=== PATIENT | female | born 1970 ===

== ENCOUNTER 2017-03-29 18:13 | Emergency (ER) | payer BC, OTHER ==
[2017-03-29 18:14] VITALS: BMI 32.5
--- NOTE | 2017-03-29 18:27 | ED PDOC ---
Arrival/HPI - General Time Seen by Provider: 03/29/17 18:25 Historian: Patient - History of Present Illness Narrative History of Present Illness (Text): 03/29/17 18:25 This 46-year-old female presents to the emergency department complaining of left upper tooth ache for 2 weeks. Patient has made an appointment to see her dentist in 2 weeks from now. Patient is requesting antibiotics. Denies dysphasia, sore throat, aches, fever, facial rash, numbness, shortness of breath , cough, abdominal pain, or trauma Time/Duration: Other (2 weeks) Past Medical History - Provider Review Nursing Documentation Reviewed: Yes - Infectious Disease Hx of Infectious Diseases: None - Tetanus Immunization Tetanus Immunization: Unknown - Cardiac Hx Cardiac Disorders: No - Pulmonary Hx Respiratory Disorders: Yes Hx Asthma: Yes - Neurological Hx Neurological Disorder: No - HEENT Hx HEENT Disorder: No - Renal Hx Renal Disorder: No - Endocrine/Metabolic Hx Endocrine Disorders: No - Hematological/Oncological Hx Blood Disorders: Yes Hx Anemia: Yes Hx Blood Transfusions: Yes ("multiple") Hx Blood Transfusion Reaction: Yes (hives) - Integumentary Hx Dermatological Disorder: No - Musculoskeletal/Rheumatological Hx Musculoskeletal Disorders: No - Gastrointestinal Hx Gastrointestinal Disorders: No - Genitourinary/Gynecological Hx Genitourinary Disorders: No - Psychiatric Hx Psychophysiologic Disorder: No Hx Substance Use: No - Past Surgical History Past Surgical History: No Previous - Surgical History Hx Section: Yes (x3) Hx Gastric Bypass Surgery: Yes (2006) - Anesthesia Hx Anesthesia: Yes - Suicidal Assessment Feels Threatened In Home Enviroment: No Family/Social History - Physician Review Nursing Documentation Reviewed: Yes Family/Social History: No Known Family HX Smoking Status: Former Smoker Hx Alcohol Use: No Hx Substance Use: No Hx Substance Use Treatment: No Allergies/Home Meds Allergies/Adverse Reactions: Allergies No Known Allergies Allergy (Verified 03/29/17 18:22) Review of Systems - Review of Systems Constitutional: Normal. absent: Fatigue, Weight Change, Fevers, Night Sweats Eyes: Normal ENT: Other (Toothache) Respiratory: Normal. absent: SOB, Cough Cardiovascular: Normal. absent: Chest Pain Gastrointestinal: Normal. absent: Abdominal Pain, Nausea, Vomiting Genitourinary Female: Normal Musculoskeletal: Normal Skin: Normal. absent: Rash Neurological: Normal. absent: Headache, Dizziness, Focal Weakness, Gait Changes , Speech Changes, Facial Droop, Disequilibrium, Seizure Endocrine: Normal Hemo/Lymphatic: Normal Psychiatric: Normal Physical Exam Vital Signs Temp Pulse Resp BP Pulse Ox 03/29/17 18:36 99.2 F 70 16 129/84 97 Temperature: Afebrile Blood Pressure: Normal Pulse: Regular Respiratory Rate: Normal Appearance: Positive for: Well-Appearing, Non-Toxic, Comfortable Pain Distress: None Mental Status: Positive for: Alert and Oriented X 3 - Systems Exam Head: Present: Atraumatic, Normocephalic Pupils: Present: PERRL Extroacular Muscles: Present: EOMI Conjunctiva: Present: Normal Ears: Present: Normal, NORMAL TM, Normal Canal. No: Erythema, TM Bulging, Fluid , TM Perf Mouth: Present: Moist Mucous Membranes, Normal Lips, Normal Tounge, Other (Mild left tooth #15 caries). No: Drooling Pharnyx: Present: Normal. No: ERYTHEMA, EXUDATE, TONSILS ENLARGED Nose (External): Present: Atraumatic Nose (Internal): Present: Normal Inspection Neck: Present: Normal Range of Motion, Trachea Midline. No: Meningeal Signs, MIDLINE TENDERNESS, Paraspinal Tenderness Upper Extremity: Present: Normal Inspection, Normal ROM, NORMAL PULSES, Neurovascularly Intact, Capillary Refill < 2s Lower Extremity: Present: Normal Inspection, NORMAL PULSES, Neurovascularly Intact, Capillary Refill < 2 s Neurological: Present: GCS=15, CN II-XII Intact, Speech Normal, Motor Func Grossly Intact, Normal Sensory Function, Normal Cerebellar Funct, Gait Normal, Memory Normal Skin: Present: Warm, Dry, Normal Color. No: Rashes Psychiatric: Present: Alert, Oriented x 3 Medical Decision Making ED Course and Treatment: 03/29/17 18:31 Patient remained stable during the course of the ED visit. Patient tooth infection was treated with amoxicillin. Patient was recommended to follow with her dentist in 1-2 days. To return to the emergency symptoms worsen [place] [employer] was reviewed without recent narcotic prescription filled. Re-evaluation Time: 18:32 Reassessment Condition: Re-examined, Improved - Medication Orders Current Medication Orders: Discontinued Medications Amoxicillin (Amoxil 500 Mg Cap) 500 mg PO STAT STA PRN Reason: Protocol Stop: 03/29/17 18:28 Last Admin: 03/29/17 18:47 Dose: 500 mg Disposition/Present on Arrival - Present on Arrival Any Indicators Present on Arrival: No History of DVT/PE: No History of Uncontrolled Diabetes: No Urinary Catheter: No History of Decub. Ulcer: No History Surgical Site Infection Following: None - Disposition Have Diagnosis and Disposition been Completed?: Yes Diagnosis: Tooth ache Disposition: HOME/ ROUTINE Disposition Time: 18:32 Patient Plan: Discharge Condition: GOOD Discharge Instructions (ExitCare): Toothache (ED) Additional Instructions: Call primary dentist for follow-up visit in 1-2 days. Condition is instructed with food. Return to the emergency symptoms worsen Prescriptions: Acetaminophen/Hydrocodone Bi [Vicodin 300 mg-5 mg] 1 tab PO TID PRN #10 tab PRN Reason: Pain, Severe (8-10) Amoxicillin [Amoxil 500 mg Cap] 500 mg PO TID #30 cap Chlorhexidine 0.12% [Peridex] 15 ml PO BID #1 bottle Referrals: [facility] [Outside] - Follow up with primary [employer] [facility] [Outside] - Follow up with primary Forms: WORK NOTE
[2017-03-29 18:37] VITALS: BP 129/84; PULSE 70; RESP 16; TEMP 99.2; O2SAT 97
== END 2017-03-29 18:48 | disposition home or self-care (01) ==
LOC: ED 18:13
DX: K08.89 Other specified disorders of teeth and supporting structures (principal)

== ENCOUNTER 2017-04-12 19:56 | Observation (INO) | payer BC ==
--- NOTE | 2017-04-12 21:07 | ED PDOC ---
Arrival/HPI - General Chief Complaint: High Blood Pressure Time Seen by Provider: 04/12/17 20:24 Historian: Patient, Family - History of Present Illness Narrative History of Present Illness (Text): 04/12/17 22:28 Patient is a 46 yo female past medical hx of lupus, presents to ED with one week history of intermittent arm numbness and weakness, associated with intermittent headache and dyspnea. Patient states 5 days ago while at rest, she experienced sudden sensation of numbness and weakness to left arm, "felt like I couldn't hold on to things" for "a couple minutes". Associated with headache. Symptoms resolved, but later in the day she felt dizzy and short of breath. Symptoms continued intermittently for next few days, and 2 days ago she had sensation of nausea as well. This morning while at rest she experienced numbness and sensation of weakness to right arm associated with blurred vision. states no change in behavior or speech changes throughout the week that he has noticed. No gait instability. Patient had brief episodes of blurred vision but denies loss of vision or severe headache. Denies difficulty working on computer or using her cellphone today. She states she checked her blood pressure on family member's blood pressure cuff and SBP was 190, checked twice. She denies prior history of hypertension. She reports hx of [place] and CAD in sister in her 20s, as well as mother. She denies any past known cardiac history for herself. Currently denies any chest pain or headache. Past Medical History - Infectious Disease Hx of Infectious Diseases: None - Tetanus Immunization Tetanus Immunization: Unknown - Cardiac Hx Cardiac Disorders: No - Pulmonary Hx Respiratory Disorders: Yes Hx Asthma: Yes - Neurological Hx Neurological Disorder: No - HEENT Hx HEENT Disorder: No - Renal Hx Renal Disorder: No - Endocrine/Metabolic Hx Endocrine Disorders: No - Hematological/Oncological Hx Blood Disorders: Yes Hx Anemia: Yes Hx Blood Transfusions: Yes ("multiple") Hx Blood Transfusion Reaction: Yes (hives) - Integumentary Hx Dermatological Disorder: No - Musculoskeletal/Rheumatological Hx Musculoskeletal Disorders: No - Gastrointestinal Hx Gastrointestinal Disorders: No - Genitourinary/Gynecological Hx Genitourinary Disorders: No - Psychiatric Hx Psychophysiologic Disorder: No Hx Substance Use: No - Past Surgical History Past Surgical History: No Previous - Surgical History Hx Section: Yes (x3) Hx Gastric Bypass Surgery: Yes (2005) - Anesthesia Hx Anesthesia: Yes - Suicidal Assessment Feels Threatened In Home Enviroment: No Family/Social History Family/Social History: CAD/[place] Smoking Status: Former Smoker Hx Alcohol Use: No Hx Substance Use: No Hx Substance Use Treatment: No Allergies/Home Meds Allergies/Adverse Reactions: Allergies No Known Allergies Allergy (Verified 03/29/17 18:22) Home Medications: Home Meds Medication Instructions Recorded Confirmed Acetaminophen [Non-Aspirin Pain 650 mg PO QID PRN 04/13/17 04/13/17 Relief] Amoxicillin [Amoxil 500 mg Cap] 500 mg PO TID 04/13/17 04/13/17 Amoxicillin/Clavulanate [Augmentin 1 tab PO TID 04/13/17 04/13/17 500 MG-125 MG] Levocetirizine Dihydrochloride 5 mg PO DAILY 04/13/17 04/13/17 [Xyzal] oxyCODONE/Acetaminophen [Percocet 1 tab PO TID PRN MDD 3 04/13/17 04/13/17 5/325 mg Tab] Review of Systems - Review of Systems Constitutional: Fatigue. absent: Fevers Eyes: Vision Changes, Other (blurred vision, no loss of vision or diplopia). absent: Eye Pain ENT: absent: Hearing Changes, Sore Throat, Rhinorrhea Respiratory: SOB. absent: Cough Cardiovascular: [place]. absent: Edema, Orthopnea Gastrointestinal: Nausea. absent: Abdominal Pain, Appetite Changes, Hematochezia Genitourinary Female: absent: Dysuria, Frequency, Hematuria Musculoskeletal: Arthralgias. absent: Back Pain, Neck Pain Skin: absent: Rash Neurological: Headache, Focal Weakness. absent: Dizziness, Speech Changes, Facial Droop Endocrine: absent: Polyuria Hemo/Lymphatic: absent: Easy Bleeding Psychiatric: absent: Anxiety, Depression Physical Exam Vital Signs Reviewed: Yes Vital Signs Temp Pulse Resp BP Pulse Ox 04/13/17 00:00 66 18 134/84 99 04/12/17 22:05 63 18 137/90 96 04/12/17 20:12 99.0 F 75 18 152/88 H 98 Temperature: Afebrile Blood Pressure: Hypertensive Appearance: Positive for: Non-Toxic Pain Distress: Mild Mental Status: Positive for: Alert and Oriented X 3 - Systems Exam Head: Present: Atraumatic, Normocephalic Pupils: Present: PERRL Extroacular Muscles: Present: EOMI Conjunctiva: Present: Other (visual acuity and visual whittaker intact, no diplopia ) Mouth: Present: Moist Mucous Membranes, Other (dental pain upper molar, no facial edema or erythema) Pharnyx: No: ERYTHEMA, EXUDATE Nose (Internal): Present: Normal Inspection, No Active Bleeding Neck: Present: Normal Range of Motion. No: Meningeal Signs, MIDLINE TENDERNESS Respiratory/Chest: Present: Clear to Auscultation. No: Respiratory Distress, Tender to Palpation Cardiovascular: Present: Regular Rate and Rhythm, Murmurs Abdomen: No: Tenderness, Distention Back: No: CVA Tenderness, Midline Tenderness Upper Extremity: Present: Normal ROM, NORMAL PULSES. No: Cyanosis, Edema, Deformity Lower Extremity: Present: NORMAL PULSES, Neurovascularly Intact. No: CALF TENDERNESS Neurological: Present: Speech Normal, Motor Func Grossly Intact, Normal Sensory Function, Normal Cerebellar Funct, Gait Normal, Memory Normal Skin: Present: Warm Psychiatric: Present: Alert, Normal Insight, Normal Concentration Medical Decision Making ED Course and Treatment: 04/12/17 22:35 Patient with prior history of lupus, reports strong family cardiac history but denies known cardiac history herself. On exam in ED, BP monitored, improved with serial exams. No focal weakness or drift noted on exam with serial exams. No hypoxia or respiratory distress. Initial EKG unremarkable. There is dental pain but afebrile nontoxic appearing with no facial edema noted. Currently no weakness or pulse deficits noted. Labs unremarkable, ct head pending. 04/12/17 23:02 Re-evaluation, NO chest pain. No mid back pain. No arm pain or weakness. No pulse deficits. Lungs clear. Ddimer unremarkable. Patient complaints of headache. Re-exam. Alert, no focal motor or sensory deficits. CXR with no ptx. No chest pain radiating to back on exam. Will admit to telemetry observation for further cardiac montioring and serial neuro exams. Case d/w covering PMD for Dr. Boone, accepts admission. Patient took aspirin earlier in the day. 04/12/17 23:09 CT head reviewed. Sinus disease noted. On exam, no facial bony tenderness or edema. D dimer unremarkable. - Lab Interpretations Lab Results: 04/12/17 21:50 04/12/17 21:50 Lab Results 04/12/17 21:50: Salicylates < 1 L, Acetaminophen < 10.0 L 04/12/17 21:50: Urine Color Yellow, Urine Appearance Clear, Urine pH 6.0, Ur Specific [place] 1.025, Urine Protein Negative, Urine Glucose (UA) Negative, Urine Ketones Trace H, Urine Blood Moderate H, Urine Nitrate Negative, Urine Bilirubin Negative, Urine Urobilinogen 1.0 H, Ur Leukocyte Esterase Negative, Urine RBC 10 - 15, Urine WBC 0 - 2, Ur Epithelial Cells 3 - 4, Urine Bacteria Mod, Urine HCG, Qual Negative 04/12/17 21:50: PT 10.1, INR 0.94, APTT 28.5, D-Dimer, Quantitative 0.24 04/12/17 21:50: Sodium 139, Potassium 4.0, Chloride 106, Carbon Dioxide 28, Anion Gap 9 L, BUN 13, Creatinine 0.7, Est GFR ( Amer) > 60, Est GFR (Non -Af Amer) > 60, Random Glucose 89, Calcium 8.8, Total Bilirubin 0.3, AST 27, ALT 22, Alkaline Phosphatase 62, Lactate Dehydrogenase 393, Total Creatine Kinase 73, Troponin I < 0.01, NT-Pro-B Natriuret Pep 173, Total Protein 6.2, Albumin 3.4, Globulin 2.8, Albumin/Globulin Ratio 1.2 04/12/17 21:50: WBC 6.7 D, RBC 3.69, Hgb 11.7 L, Hct 35.0 L, MCV 94.9, MCH 31.7 , MCHC 33.4, RDW 13.9, Plt Count 213, MPV 8.7, Gran % 59.3, Lymph % (Auto) 33.1 , [place] % (Auto) 6.0, Eos % (Auto) 1.5, Baso % (Auto) 0.1, Gran # 3.95, Lymph # 2.2, [place] # 0.4, Eos # 0.1, Baso # 0.01 - RAD Interpretation Radiology Orders: 04/12/17 21:07 HEAD W/O CONTRAST [CT] Stat 04/12/17 21:08 CHEST PORTABLE [RAD] Stat - EKG Interpretation EKG Interpretation (Text): 04/12/17 22:37 EKG at 21:35 normal sinus rhythm rate of [address] elevations noted Interpreted by ED Physician: Yes Type: 12 lead EKG - Medication Orders Current Medication Orders: Discontinued Medications Acetaminophen (Tylenol 325mg Tab) 650 mg PO STAT STA Stop: 04/13/17 09:19 Last Admin: 04/13/17 09:23 Dose: 650 mg Re-Assess: [facility] Pain/Vitals Document 04/13/17 10:23 AE (Rec: 04/13/17 12:42 AE [id number]) Pain Reassessment Is This A Pain ReAssessment? Yes Sleep Is patient sleeping during reassessment? No Presence of Pain Presence of Pain No Acetaminophen/Butalbital/Caffeine (Fioricet) 1 tab PO Q4H STA Stop: 04/13/17 11:27 Last Admin: 04/13/17 13:03 Dose: 1 tab Amoxicillin (Amoxil 500 Mg Cap) 500 mg PO Q8 NADINE PRN Reason: Protocol Last Admin: 04/13/17 13:04 Dose: 500 mg Amoxicillin/Clavulanate Potassium (Augmentin 875 Mg-125 Mg Tab) 1 tab PO STAT STA PRN Reason: Protocol Stop: 04/12/17 23:09 Last Admin: 04/12/17 23:53 Dose: 1 tab Cyanocobalamin (Vitamin B12 1000 Mcg/Ml Inj) 1,000 mcg IM ONCE ONE Stop: 04/13/17 11:28 Last Admin: 04/13/17 13:04 Dose: 1,000 mcg Iohexol (Omnipaque 350 100 Ml) Confirm Administered Dose 350 mg .ROUTE .STK-MED ONE Stop: 04/13/17 10:29 Ketorolac Tromethamine (Toradol) 30 mg IVP ONCE ONE Stop: 04/12/17 23:06 Last Admin: 04/12/17 23:53 Dose: 30 mg Re-Assess: [facility] Pain Assessment Document 04/13/17 01:45 MS (Rec: 04/13/17 02:51 MS [id number]) Pain Reassessment Is this a pain reassessment? Yes Sleep Is patient sleeping during reassessment? No Presence of Pain Presence of Pain No Disposition/Present on Arrival - Present on Arrival Any Indicators Present on Arrival: No History of DVT/PE: No History of Uncontrolled Diabetes: No Urinary Catheter: No History of Decub. Ulcer: No History Surgical Site Infection Following: None - Disposition Have Diagnosis and Disposition been Completed?: Yes Diagnosis: Headache, Chest pain, Arm weakness, Sinusitis Disposition: HOSPITALIZED Disposition Time: 23:04 Patient Plan: Observation, Telemetry Condition: FAIR
[2017-04-12 22:07] LABS: ADD MANUAL DIFF? NO
[2017-04-12 22:10] LABS: BASO # 0.01 K/mm3 (0.0-2.0); BASO % 0.1 % (0.0-3.0); EOS # 0.1 (0.0-0.7); EOS % 1.5 % (1.5-5.0); GRAN # 3.95 (1.4-6.5); GRAN % 59.3 % (50.0-68.0); LYMPH # 2.2 (1.2-3.4); LYMPH % 33.1 % (22.0-35.0); MEAN CELL VOLUME 94.9 fL (80.0-105.0); MEAN CORPUSCULAR HEMOGLOBIN 31.7 pg (25.0-35.0); MEAN CORPUSCULAR HGB CONC 33.4 g/dl (31.0-37.0); MEAN PLATELET VOLUME 8.7 fl (7.0-11.0); MONO # 0.4 (0.1-0.6); PLATELET COUNT 213 10^3/uL (120.0-450.0); RED CELL DISTRIBUTION WIDTH 13.9 % (11.5-14.5); WHITE BLOOD COUNT 6.7 10^3/ul (4.5-11.0)
[2017-04-12 22:20] LABS: ALB/GLOB RATIO 1.2 (1.1-1.8); ALKALINE PHOSPHATASE 62 U/L (38-133); ALT/SGPT 22 U/L (7-56); AST/SGOT 27 U/L (15-39); BILIRUBIN,TOTAL 0.3 mg/dL (0.2-1.3); BLOOD UREA NITROGEN 13 mg/dL (7-21); CALCIUM 8.8 mg/dL (8.4-10.5); CARBON DIOXIDE 28 mmol/L (21-33); GFR AFRICAN-AMERICAN > 60; GLUCOSE,RANDOM 89 mg/dL (70-110); SODIUM 139 mmol/L (132-148); TOTAL PROTEIN 6.2 g/dL (5.8-8.3)
[2017-04-12 22:21] LABS: CHLORIDE 106 mmol/L (98-107)
[2017-04-12 22:24] LABS: INR 0.94 (0.93-1.08); PARTIAL THROMBOPLASTIN TIME 28.5 Seconds (23.7-30.8); URINE BILIRUBIN NEGATIVE (NEGATIVE); URINE BLOOD MODERATE (NEGATIVE); URINE GLUCOSE (UA) NEGATIVE (NEGATIVE); URINE KETONE TRACE mg/dL (NEGATIVE); URINE LEUKOCYTE ESTERASE NEGATIVE Leu/uL (NEGATIVE); URINE PROTEIN NEGATIVE mg/dL (<30 mg/dL)
[2017-04-12 22:31] LABS: URINE APPEARANCE CLEAR (CLEAR); URINE COLOR YELLOW (YELLOW)
[2017-04-12 22:32] LABS: TROPONIN I < 0.01 ng/mL
[2017-04-12 22:41] LABS: URINE BACTERIA MOD (NEG); URINE WBC 0 - 2 /hpf (0-6)
[2017-04-12 22:45] LABS: D DIMER 0.24 mg/L FEU (0-0.50)
--- NOTE | 2017-04-12 23:07 | CT ---
EXAM: CT Head Without Intravenous Contrast CLINICAL HISTORY: The patient age is 46 years old and is female; Signs and symptoms; Dizziness; Additional info: Arm numbness/weakness Facility exam id and description: Ct heads head w/o contrast TECHNIQUE: Axial computed tomography images of the head/brain without intravenous contrast. This CT exam was performed using one or more of the following dose reduction techniques: automated exposure control, adjustment of the mA and/or kV according to patient size, and/or use of iterative reconstruction technique. EXAM DATE/TIME: 04/12/2017 9:07 PM COMPARISON: No relevant prior studies available. FINDINGS: Brain: The white-lundberg differentiation is preserved demonstrating no acute territorial type infarct. No acute intracranial hemorrhage is seen. No edema. Midline shift: There is no midline shift. Ventricles: No ventriculomegaly. Bones/joints: The calvarium demonstrates no evidence for a depressed fracture. Soft tissues: No acute abnormality. Sinuses: There is near-complete opacification of the left maxillary sinus. Mucosal thickening is visualized of a few left ethmoid air cells. Mastoid air cells: No mastoid effusion. IMPRESSION: 1. No acute intracranial abnormality. 2. Paranasal sinus disease is noted above. 3. If further evaluation is clinically indicated, an MRI of the brain is recommended.
[2017-04-12] MEDS ORDERED: Amoxicillin-Clav 875-125 mg Tab PO STA (23:08)
[2017-04-13 02:25] VITALS: RESP 20; BMI 30.7
[2017-04-13 06:33] VITALS: BP 106/79; TEMP 98.4; O2SAT 97
--- NOTE | 2017-04-13 09:36 | RAD ---
HISTORY: sob COMPARISON: 01/23/2014 FINDINGS: LUNGS: No active pulmonary disease. PLEURA: No significant pleural effusion identified, no pneumothorax apparent. CARDIOVASCULAR: Normal. OSSEOUS STRUCTURES: No significant abnormalities. VISUALIZED UPPER ABDOMEN: Normal. OTHER FINDINGS: None. IMPRESSION: No active disease.
[2017-04-13] MEDS ORDERED: Iohexol 350 MG/100 ML VIAL ONE (10:28)
--- NOTE | 2017-04-13 11:13 | CP.PCM.PN ---
Subjective - Date & Time of Evaluation Date of Evaluation: 04/13/17 Time of Evaluation: 10:20 - Subjective Subjective: Patint had c/o headache earlier today,was given tylenol. She is now seen for follow up. States the headache has subsided,however,the dizziness,blurry vision, numbness and weakness of both arms still persist. Denies any other symptoms. Vs are stable. Patient has history of Lupus. Objective - Vital Signs/Intake and Output Vital Signs (last 24 hours): Temp Pulse Resp BP Pulse Ox 98.4 F 61 20 106/79 97 04/13/17 06:00 04/13/17 06:00 04/13/17 06:00 04/13/17 06:00 04/13/17 06:00 Intake and Output: 04/13/17 04/13/17 06:59 18:59 Intake Total 240 Balance 240 - Labs Labs: PT 10.1 Seconds (9.9-11.8) 04/12/17 21:50 INR 0.94 (0.93-1.08) 04/12/17 21:50 APTT 28.5 Seconds (23.7-30.8) 04/12/17 21:50 - Constitutional Appears: No Acute Distress - Eye Exam Eye Exam: PERRL - ENT Exam ENT Exam: Mucous Membranes Moist - Neck Exam Neck Exam: Normal Inspection - Respiratory Exam Respiratory Exam: Clear to Ausculation Bilateral - Cardiovascular Exam Cardiovascular Exam: REGULAR RHYTHM - GI/Abdominal Exam GI & Abdominal Exam: Soft, Normal Bowel Sounds. absent: Tenderness - Neurological Exam Neurological Exam: Alert, Awake, Oriented x3 Additional comments: No gross focal deficit - Psychiatric Exam Psychiatric exam: Normal Affect - Skin Skin Exam: Dry, Warm Assessment and Plan - Assessment and Plan (Free Text) Assessment: Headache,resolved Sinusitis Cervical radiculopathy Plan: Dr Boone is here to see pt.MRI of the brain is being done.Further work up as per Dr Boone.
[2017-04-13] MEDS ORDERED: Apap-Butalbital-Caffeine 325-50-40mg Tab PO STA (11:26)
--- NOTE | 2017-04-13 12:21 | CON ---
DATE: 04/13/2017 CHIEF COMPLAINT: Intermittent numbness in the arms and legs, along with headache. HISTORY OF PRESENT ILLNESS: A 46-year-old woman with history of gastric bypass, history of questiona ble lupus diagnosed by her primary care doctor in [place], [place], who came with a 1-week hist ory of intermittent numbness in the arm and weakness, associated with headache and dyspnea. She said the headache was a numbness, felt like she could not hold on to things for a couple minutes. The he adache was diffuse pressure type without any photophobia, but mild blurry vision. Neuro exam is curr ently nonfocal at this time. CAT scan of the head showed no acute intracranial abnormalities. She u nderwent an MRI of the brain. Her labs were unremarkable, and her headache is much better. PAST MEDICAL HISTORY: Questionable lupus diagnosed by a primary care doctor in [facility] y, history of asthma, history of anemia. REVIEW OF SYSTEMS: A 14-point review of systems is negative except as in the HPI. FAMILY HISTORY: Noncontributory. ALLERGIES: No known drug allergies. SOCIAL HISTORY: No illicit drug use, smoking, or ETOH abuse. MEDICATIONS: Reviewed via nurse's reconciliation sheet. PHYSICAL EXAMINATION: VITAL SIGNS: Temperature 98.1, pulse rate 61, blood pressure 106/79, respiratory rate 20, oxygen sat uration 97% on room air. GENERAL: The patient is sitting up in bed in no acute distress. HEENT: Atraumatic, normocephalic. PERRLA. Extraocular muscles intact. NECK: Supple, no JVD, no adenopathy noted. LUNGS: Clear to auscultation. No adventitious sounds. HEART: S1, S2, normal rate and rhythm. No murmurs, rubs, or gallops. ABDOMEN: Soft, nontender, nondistended. Bowel sounds are present. EXTREMITIES: No clubbing, no cyanosis. Peripheral pulses 2+ felt bilaterally. NEUROLOGIC: The patient is alert, oriented to person, place, month and year. Speech is fluent, with out any errors. Cranial nerves II through XII are intact. MOTOR: No pronator drift seen. Strength is 5/5 in both upper and lower extremities. Toes are downg oing bilaterally. SENSORY: Light touch, pinprick, proprioception, vibration intact. DTRs are 2+ throughout. COORDINATION: [id number]-[id number] intact. GAIT: Deferred for now. LABORATORY DATA: CMP: Sodium is 139, potassium 4, chloride of 106, carbon dioxide 28, BUN of 13, cr eatinine 0.7, random glucose 89. ASSESSMENT AND PLAN: This is a 46-year-old woman with past medical history of gastric bypass, histor y of questionable lupus diagnosed by primary care doctor years ago in [place], [place], history of asthma, history of anemia who came in with intermittent numbness of the arms and questionable wea kness associated with headache, diffuse pressure type with blurry vision, but no double vision, no sc intillating scotomas, which has subsided. She has been having poor sleep hygiene for the past week. Likely her presenting symptoms are secondary to an atypical migraine phenomena, superimposed underly ing some form of vitamin deficiency. She has a history of gastric bypass surgery. At this time, her neuro exam is nonfocal. PLAN: Recommend: 1. B12 injection x 1 dose. 2. She can take Excedrin Migraine p.r.n. at acute onset of headache. 3. Can follow up as an outpatient if headaches continue to occur. At this time, she is clinically stable from my standpoint. Thank you for this consult. Wale Hanks MD cc: [id number] TT: 04/13/2017 12:20:40 Confirmation # [id number] Dictation # [id number] yovani
[2017-04-13 12:34] VITALS: PULSE 84
--- NOTE | 2017-04-13 13:28 | MRI ---
PROCEDURE: MRI BRAIN WITHOUT CONTRAST HISTORY: numbness /h/o lupus COMPARISON: None. TECHNIQUE: Multiplanar, multisequence MR images of the brain were obtained without intravenous contrast enhancement. FINDINGS: HEMORRHAGE: None DWI: No evidence of an acute or early subacute infarction. BRAIN PARENCHYMA: No mass effect or edema. No atrophy or chronic microvascular ischemic changes. VENTRICLES: Unremarkable. No hydrocephalus. CRANIUM: Unremarkable. ORBITS: Grossly unremarkable. PARANASAL SINUSES/MASTOIDS: There is fluid opacification of the left maxillary sinus. VASCULAR SYSTEM: Skull base flow voids intact. OTHER FINDINGS: None. IMPRESSION: No acute intracranial findings. Left maxillary sinusitis
--- NOTE | 2017-04-13 14:03 | CARD ---
APPROVED REPORT EKG Measurement Heart [id number] <Conclusion> Normal sinus rhythm Normal ECG
--- NOTE | 2017-04-13 14:15 | HP ---
HISTORY OF PRESENT ILLNESS: The patient is a 46-year-old known to me from office practice. The denisse ent came to Emergency Room because of bilateral arm pain, complaining about terrible headache; also, has some left facial numbness. The patient stated she was having some dental issues. For that, she has been seeing a dentist who gave her Augmentin and she was supposed to have left-sided tooth extrac tion done. Currently, the patient states she was having terrible headache. Her [id number]-mw-aii has a blood pressure machine. When she checked it, it was 190/100 and later on she checked it on multiple occasions and it was running on the high side, so she was not sure. They ruled out all the symptoms, so she came to Emergency Room for further evaluation. Denies any loss of consciousness, no current weakness, numbness, does have headache and arm pain. PAST MEDICAL HISTORY: 1. Gastric bypass. 2. History of B12 deficiency. 3. History of chronic anemia. 4. History of bronchial asthma, but stable. ALLERGIES: She is not allergic to any medications. MEDICATIONS AT HOME: She is on supplement for vitamin D and iron supplements. She is also on amoxic illin 500 t.i.d. SOCIAL HISTORY: She just got . She is a heavy smoker and socially drinks. REVIEW OF SYSTEMS: Significant for right arm pain and headache. PHYSICAL EXAMINATION: GENERAL: She is awake and alert, communicative. VITAL SIGNS: She is afebrile, pulse 61, respirations 20, blood pressure 106/79. LUNGS: Bilateral fair airflow, no rhonchi or crackle. HEART: S1, S2 audible. No murmur. ABDOMEN: Soft, nontender, no rebound, no guarding. NEUROLOGIC: The patient is awake and alert, communicative, ambulatory. LABORATORY DATA: WBC 6.7, hemoglobin 11.7, hematocrit 35, platelet of 213. PT 10.1, INR 0.94. Chem istry: Sodium 139, potassium 4.0, chloride 106, CO2 28, BUN 13, creatinine 0.7, blood sugar of 89. Urinalysis shows moderate blood. Positive RBC. She had CT scan of the head done that is unremarkabl e. X-ray of chest is unremarkable. ASSESSMENT: 1. Intractable headache with right arm pain. 2. History of gastric bypass. 3. History of chronic anemia. PLAN: I will order for MRI of the brain after the patient is evaluated by cardiology and neuro, can be discharged later on. We will give her a few Percocets as needed. We will resume her Augmentin an d she can be discharged later on today after seen by cardiology and neuro. I doubt this is a neuroge lola issue. She might be B12 deficiency. I will just give her 1 dose of 1 mL of B12. Devin Boone MD cc: [phone] TT: 04/13/2017 14:14:54 dn
--- NOTE | 2017-04-13 14:29 | CON ---
DATE: 04/13/2017 REASON FOR CONSULTATION: Cardiac evaluation, admitted with uncontrolled hypertension. BRIEF CLINICAL HISTORY: A 46-year-old female with past medical history of morbid obesity, status pos t gastric bypass 2005, history of lupus, came in with complaint of numbness, first blurring vision wi th numbness left arm, then numbness in the right arm and patient had significant headache. She check ed her blood pressure, she has machine from her derckn-gb-tib found to be 195/115 in the left arm, th en she checked in the right arm was 195/115. She repeated the blood pressure after 15 minutes, still the same, so decided to come to the Emergency Room. Denies any chest pain, denies any palpitation, but complained of shortness of breath associated with elevated blood pressure. PAST MEDICAL HISTORY: Significant for recently tooth infection and was on amoxicillin and supposed t o have tooth pulled today. History of lupus. PAST SURGICAL HISTORY: Significant for gastric bypass 2005 and lost 200 pounds according to the denisse ent. Later on, then put 10 pounds weight gain but is still maintaining the weight. FAMILY HISTORY: Significant for coronary artery disease, 1 cousin had heart attack earlier, brother at a younger age 24-year-old and father had OR also. SOCIAL HISTORY: Denies smoking. Denies any history of alcohol abuse. CURRENT MEDICATIONS: None. REVIEW OF SYSTEMS: As per HPI. PHYSICAL EXAMINATION: VITAL SIGNS: Temperature afebrile, heart rate 61, blood pressure 106/79. HEENT: PERRLA. Extraocular muscles intact. NECK: Supple. No carotid bruits. No thyromegaly. CHEST: Clear to auscultation. HEART: S1, S2 regular. ABDOMEN: Soft. EXTREMITIES: Clubbing, cyanosis negative. LABORATORY DATA: Blood workup as follows: WBC 6.7, hemoglobin 11.7, hematocrit 35.0, platelet count 213. Chemistry shows sodium ____, potassium 4, chloride 106, carbon dioxide 28, anion gap of 9, BUN 13, creatinine 0.7. Troponin 0.01 x 2, negative. EKG showed normal sinus, rate of 68. IMPRESSION: Atypical chest pain, numbness, blurring of vision, history of a lupus. Head CT is negat jorge. History of gastric bypass, history of uncontrolled hypertension. The patient says she always h as had the low blood pressure, but one time it was elevated, now the patient is back to normal. RECOMMENDATION: Neuro evaluation. We will get echo to assess LV function and we will discontinue te lemetry. Thank you, Dr. Boone, for providing the opportunity in taking care of this patient. Because of the risk factors, multiple, for risk stratification, consider stress test as outpatient. We will follow with you. Thank you, Dr. Boone, for providing the opportunity in taking care of this patient. We will follow with you. Himanshu Massey MD cc: [id number] TT: 04/13/2017 14:29:13 Confirmation # [id number] Dictation # [id number]
[2017-04-13] MEDS ORDERED: POLYETHYLENE GLYCOL 3350 17 GM/Dose PACKET PO SCH (18:00)
== END 2017-04-13 15:20 | disposition home or self-care (01) ==
LOC: ED 19:56 → ERH 23:05 → 2RNO 04-13 01:36
PROVIDERS: ADMIT Internal Medicine; ATTEND Internal Medicine
DX: I10 Essential (primary) hypertension (principal); L93.0 Discoid lupus erythematosus; E56.9 Vitamin deficiency, unspecified; G43.009 Migraine without aura, not intractable, without status migrainosus; F17.200 Nicotine dependence, unspecified, uncomplicated; J45.909 Unspecified asthma, uncomplicated; M54.12 Radiculopathy, cervical region; Z98.84 Bariatric surgery status; Z82.49 Family history of ischemic heart disease and other diseases of the circulatory system; D64.9 Anemia, unspecified; J32.9 Chronic sinusitis, unspecified; E53.8 Deficiency of other specified B group vitamins; R07.89 Other chest pain; R20.0 Anesthesia of skin
CPT/HCPCS: 36415; 70450; 70551; 71010; 80053; 81001; 82550; 83615; 83880; 84484; 84703; 85025; 85378; 85610; 85730; 93005; 96374; 99283; G0378; G0480; J1885; J3420

== ENCOUNTER 2017-10-31 09:38 | Emergency (ER) | payer BC ==
[2017-10-31 09:38] VITALS: BMI 30.7
[2017-10-31 10:24] VITALS: TEMP 98.9; O2SAT 99
[2017-10-31 12:13] LABS: BASO # 0.01 K/mm3 (0.0-2.0); BASO % 0.1 % (0.0-3.0); EOS # 0.1 (0.0-0.7); EOS % 1.1 % (1.5-5.0); GRAN # 6.21 (1.4-6.5); GRAN % 67.5 % (50.0-68.0); LYMPH # 2.5 (1.2-3.4); LYMPH % 26.7 % (22.0-35.0); MEAN CELL VOLUME 92.1 fl (80.0-105.0); MEAN CORPUSCULAR HEMOGLOBIN 29.5 pg (25.0-35.0); MEAN PLATELET VOLUME 9.5 fl (7.0-11.0); MONO # 0.4 (0.1-0.6); MONO % 4.6 % (1.0-6.0); RBC 4.07 10^6/uL (3.5-6.1); RED CELL DISTRIBUTION WIDTH 14.3 % (11.5-14.5); WHITE BLOOD COUNT 9.2 10^3/ul (4.5-11.0)
[2017-10-31 12:24] LABS: ALB/GLOB RATIO 1.2 (1.1-1.8); ALBUMIN 3.9 g/dL (3.0-4.8); ALT/SGPT 25 U/L (7-56); AST/SGOT 22 U/L (14-36); BLOOD UREA NITROGEN 9 mg/dL (7-21); GFR AFRICAN-AMERICAN > 60; GFR NON-AFRICAN AMERICAN > 60
--- NOTE | 2017-10-31 12:27 | RAD ---
HISTORY: cough/fever COMPARISON: 04/12/2017 TECHNIQUE: Chest PA and lateral FINDINGS: LUNGS: No active pulmonary disease. PLEURA: No significant pleural effusion identified. No pneumothorax apparent. CARDIOVASCULAR: Normal. OSSEOUS STRUCTURES: No significant abnormalities. VISUALIZED UPPER ABDOMEN: Normal. OTHER FINDINGS: None. IMPRESSION: No active disease.
[2017-10-31 13:37] VITALS: BP 144/82; PULSE 70; RESP 18
--- NOTE | 2017-10-31 13:52 | ED PDOC ---
Arrival/HPI - General Chief Complaint: Flu-like Symptoms Time Seen by Provider: 10/31/17 10:56 Historian: Patient - History of Present Illness Narrative History of Present Illness (Text): 10/31/17 14:00 47-year-old female presents today with cough and nasal congestion sore throat and body aches. Patient states she's been sick for 2 weeks with cough. Patient states 3 days ago she developed worsening bodyaches and sore throat. Patient states the cough is dry and continuous. She denies chest pain or shortness of breath. Denies dizziness or weakness. No medications have been taken at home. No other complaints Time/Duration: > week Symptom Onset: Gradual Symptom Course: Worsening Quality: Aching Severity Level: 5 Past Medical History - Provider Review Nursing Documentation Reviewed: Yes - Travel History Have you recently traveled outside [place] w/in the past 3 mons?: No - Infectious Disease Hx of Infectious Diseases: None - Tetanus Immunization Tetanus Immunization: Unknown - Cardiac Hx Cardiac Disorders: No - Pulmonary Hx Respiratory Disorders: Yes Hx Asthma: Yes - Neurological Hx Neurological Disorder: No - HEENT Hx HEENT Disorder: No - Renal Hx Renal Disorder: No - Endocrine/Metabolic Hx Endocrine Disorders: No Hx Systemic Lupus Erythematosus: Yes - Hematological/Oncological Hx Blood Disorders: Yes Hx Anemia: Yes Hx Blood Transfusions: Yes ("multiple") Hx Blood Transfusion Reaction: Yes (hives) - Integumentary Hx Dermatological Disorder: No - Musculoskeletal/Rheumatological Hx Musculoskeletal Disorders: No - Gastrointestinal Hx Gastrointestinal Disorders: No - Genitourinary/Gynecological Hx Genitourinary Disorders: No - Psychiatric Hx Psychophysiologic Disorder: No Hx Substance Use: No - Past Surgical History Past Surgical History: No Previous - Surgical History Hx Section: Yes (x3) Hx Gastric Bypass Surgery: Yes (2006) - Anesthesia Hx Anesthesia: Yes - Suicidal Assessment Feels Threatened In Home Enviroment: No Family/Social History - Physician Review Nursing Documentation Reviewed: Yes Family/Social History: Unknown Family HX Smoking Status: Heavy Smoker > 10 Cigarettes Daily Hx Alcohol Use: No Hx Substance Use: No Hx Substance Use Treatment: No Allergies/Home Meds Allergies/Adverse Reactions: Allergies No Known Allergies Allergy (Verified 10/31/17 10:13) Home Medications: Home Meds Medication Instructions Recorded Confirmed Acetaminophen [Non-Aspirin Pain 650 mg PO QID PRN 04/13/17 10/31/17 Relief] Levocetirizine Dihydrochloride 5 mg PO DAILY 04/13/17 10/31/17 [Xyzal] Review of Systems - Review of Systems Constitutional: Fevers. absent: Fatigue ENT: Sore Throat, Sinus Congestion Respiratory: Cough Cardiovascular: absent: Chest Pain, Palpitations Gastrointestinal: absent: Abdominal Pain, Nausea, Vomiting Genitourinary Female: absent: Dysuria, Frequency Skin: absent: Rash, Pruritis Psychiatric: absent: Anxiety, Depression, Suicidal Ideation Physical Exam Vital Signs Reviewed: Yes Vital Signs Temp Pulse Resp BP Pulse Ox 10/31/17 13:37 70 18 144/82 99 10/31/17 10:23 98.9 F 73 16 146/86 99 Temperature: Afebrile Blood Pressure: Normal Pulse: Regular Respiratory Rate: Normal Appearance: Positive for: Well-Appearing, Non-Toxic, Comfortable Pain Distress: None Mental Status: Positive for: Alert and Oriented X 3 - Systems Exam Head: Present: Atraumatic Conjunctiva: Present: Normal Ears: Present: Normal, NORMAL TM Mouth: Present: Moist Mucous Membranes Pharnyx: Present: Normal Nose (External): Present: Atraumatic Nose (Internal): Present: Normal Inspection Neck: Present: Normal Range of Motion, Trachea Midline. No: Meningeal Signs Respiratory/Chest: Present: Clear to Auscultation, Good Air Exchange. No: Respiratory Distress, Accessory Muscle Use Cardiovascular: Present: Regular Rate and Rhythm, Normal S1, S2. No: Murmurs Abdomen: No: Tenderness, Distention, Rebound, Guarding Back: Present: Normal Inspection Upper Extremity: Present: Normal ROM Lower Extremity: Present: Normal ROM Neurological: Present: GCS=15, Speech Normal Skin: Present: Warm, Dry, Normal Color. No: Rashes Psychiatric: Present: Alert, Oriented x 3 Medical Decision Making ED Course and Treatment: 10/31/17 Patient is nontoxic well-appearing in no distress. Vital signs are stable. rapid flu; negative cbc; wnl cmp; wnl cxr; no infiltrate or effusion; read by radiologist. Motrin Zithromax I advised follow up with primary care physician within the next 2 days. I advised increase fluids and return if symptoms worsen persist or if new symptoms develop. Patient verbalizes understanding of discharge instructions and need for immediate followup. all aspects of this case were discussed the attending of record. IMPRESSION; cough Motrin one tablet every 6 hours as needed for pain/fever reduction Zithromax one tablet once daily x4 days albuterol; 2 puffs every 4-6 hours as needed for cough. Increase fluids Followup with primary care physician the next 2 days Return if symptoms worsen persist or if new symptoms develop - Lab Interpretations Lab Results: 10/31/17 11:50 10/31/17 11:50 Lab Results 10/31/17 11:50: WBC 9.2 D, RBC 4.07, Hgb 12.0, Hct 37.5, MCV 92.1, MCH 29.5, MCHC 32.0, RDW 14.3, Plt Count 236, MPV 9.5, Gran % 67.5, Lymph % (Auto) 26.7, [place] % (Auto) 4.6, Eos % (Auto) 1.1 L, Baso % (Auto) 0.1, Gran # 6.21, Lymph # 2.5, [place] # 0.4, Eos # 0.1, Baso # 0.01 10/31/17 11:50: Sodium 139, Potassium 4.4, Chloride 106, Carbon Dioxide 26, Anion Gap 11, BUN 9, Creatinine 0.6 L, Est GFR ( Amer) > 60, Est GFR (Non -Af Amer) > 60, Random Glucose 114 H, Calcium 9.0, Total Bilirubin 0.5, AST 22, ALT 25, Alkaline Phosphatase 71, Total Protein 7.0, Albumin 3.9, Globulin 3.2, Albumin/Globulin Ratio 1.2 10/31/17 11:06: Influenza Typ A,B (EIA) Negative for flu a/b - RAD Interpretation Radiology Orders: 10/31/17 11:43 CHEST TWO VIEWS (PA/LAT) [RAD] Stat - Medication Orders Current Medication Orders: Discontinued Medications Azithromycin (Zithromax) 500 mg PO STAT STA PRN Reason: Protocol Stop: 10/31/17 13:42 Last Admin: 10/31/17 13:52 Dose: 500 mg Ibuprofen (Motrin Tab) 600 mg PO STAT STA Stop: 10/31/17 13:42 Last Admin: 10/31/17 13:52 Dose: 600 mg MAR Pain/Vitals Document 10/31/17 13:52 SF (Rec: 10/31/17 13:52 SF [facility] [id number]) Pain Reassessment Is This A Pain ReAssessment? Yes Sleep Is patient sleeping during reassessment? No Presence of Pain Presence of Pain Yes Pain Scale Used Pain Scale Used Numeric Disposition/Present on Arrival - Present on Arrival Any Indicators Present on Arrival: No History of DVT/PE: No History of Uncontrolled Diabetes: No Urinary Catheter: No History of Decub. Ulcer: No History Surgical Site Infection Following: None - Disposition Have Diagnosis and Disposition been Completed?: Yes Diagnosis: Cough Disposition: HOME/ ROUTINE Disposition Time: 13:42 Patient Plan: Discharge Condition: GOOD Discharge Instructions (ExitCare): Acute Cough (ED) Additional Instructions: Motrin one tablet every 6 hours as needed for pain/fever reduction Zithromax one tablet once daily x4 days albuterol; 2 puffs every 4-6 hours as needed for cough. Increase fluids Followup with primary care physician the next 2 days Return if symptoms worsen persist or if new symptoms develop Prescriptions: Albuterol HFA [Ventolin HFA 90 mcg/actuation (8 g)] 2 puff IH [id number] PRN #1 inhaler PRN Reason: Cough Azithromycin [Zithromax] 250 mg PO DAILY #4 tab Ibuprofen [Motrin] 600 mg PO Q6H PRN #20 tab PRN Reason: pain/fever reduction Referrals: Devin Boone MD [Primary Care Provider] - Follow up with primary Forms: [employer] (Somali), WORK NOTE
== END 2017-10-31 14:04 | disposition home or self-care (01) ==
LOC: ED 09:38
DX: R05 Cough (principal); F17.210 Nicotine dependence, cigarettes, uncomplicated; M32.9 Systemic lupus erythematosus, unspecified; Z98.84 Bariatric surgery status

== ENCOUNTER 2018-10-24 13:46 | Emergency (ER) | payer BC ==
[2018-10-24 13:46] VITALS: BMI 30.7
[2018-10-24 14:10] VITALS: RESP 18; TEMP 99.1; O2SAT 100
[2018-10-24] MEDS ORDERED: Sodium Chloride 0.9% 1,000 ML IV STA (14:15)
[2018-10-24 14:57] LABS: BASO # 0.01 K/mm3 (0.0-2.0); BASO % 0.1 % (0.0-3.0); EOS # 0.1 (0.0-0.7); EOS % 0.8 % (1.5-5.0); GRAN # 6.74 (1.4-6.5); HEMOGLOBIN 10.7 g/dL (12.0-16.0); LYMPH # 2.1 (1.2-3.4); LYMPH % 22.2 % (22.0-35.0); MEAN CORPUSCULAR HEMOGLOBIN 25.6 pg (25.0-35.0); MEAN CORPUSCULAR HGB CONC 30.8 g/dl (31.0-37.0); MEAN PLATELET VOLUME 9.3 fl (7.0-11.0); MONO # 0.4 (0.1-0.6); MONO % 3.9 % (1.0-6.0); RBC 4.18 10^6/uL (3.5-6.1); RED CELL DISTRIBUTION WIDTH 18.6 % (11.5-14.5); WHITE BLOOD COUNT 9.2 10^3/uL (4.5-11.0)
[2018-10-24 15:00] LABS: ALB/GLOB RATIO 1.4 (1.1-1.8); ALBUMIN 4.2 g/dL (3.0-4.8); ALT/SGPT 19 U/L (7-56); AST/SGOT 23 U/L (14-36); BLOOD UREA NITROGEN 9 mg/dL (7-21); CALCIUM 9.2 mg/dL (8.4-10.5); GFR NON-AFRICAN AMERICAN > 60; LIPASE 39 U/L (23-300)
[2018-10-24 15:14] LABS: URINE APPEARANCE CLEAR (CLEAR); URINE BILIRUBIN NEGATIVE (NEGATIVE); URINE BLOOD TRACE-LYSED (NEGATIVE); URINE COLOR LIGHT YELLOW (YELLOW); URINE GLUCOSE (UA) NEGATIVE (NEGATIVE); URINE LEUKOCYTE ESTERASE NEGATIVE Leu/uL (NEGATIVE); URINE PROTEIN NEGATIVE mg/dL (<30 mg/dL); URINE UROBILINOGEN 0.2 E.U./dL (<1 E.U./dL); URINE WBC 0 - 2 /hpf (0-6)
[2018-10-24 15:15] LABS: URINE BACTERIA MOD /hpf
--- NOTE | 2018-10-24 15:25 | ED PDOC ---
Arrival/HPI - General Chief Complaint: Abdominal Pain Time Seen by Provider: 10/24/18 13:47 Historian: Patient - History of Present Illness Narrative History of Present Illness (Text): 10/24/18 14:15 48 year old female, with past medical history of asthma, presents to the ED complaining of lower abdominal pain localized to suprapubic region since few days. Patient informs associated nausea but denies any other medical complai nts. Patient describes the pain as consistent with her menstrual cramps but states her LNMP was on the 3rd week of August. Patent reports her menstrual cycles are known to be regular and states her home test was negative. Patient denies any fevers, chills, vomiting, headache, dizziness, chest pain, shortness of breath, dyspnea on exertion, cough, diarrhea, back pain, urinary symptoms, vaginal discharge, neck pain, or any other complaints. Time/Duration: < week Symptom Onset: Gradual Symptom Course: Unchanged Activities at Onset: Light Context: Home Past Medical History - Provider Review Nursing Documentation Reviewed: Yes - Infectious Disease Hx of Infectious Diseases: None - Tetanus Immunization Tetanus Immunization: Unknown - Cardiac Hx Cardiac Disorders: No - Pulmonary Hx Respiratory Disorders: Yes Hx Asthma: Yes - Neurological Hx Neurological Disorder: No - HEENT Hx HEENT Disorder: No - Renal Hx Renal Disorder: No - Endocrine/Metabolic Hx Endocrine Disorders: No Hx Systemic Lupus Erythematosus: Yes - Hematological/Oncological Hx Blood Disorders: Yes Hx Anemia: Yes Hx Blood Transfusions: Yes ("multiple") Hx Blood Transfusion Reaction: Yes (hives) - Integumentary Hx Dermatological Disorder: No - Musculoskeletal/Rheumatological Hx Musculoskeletal Disorders: No - Gastrointestinal Hx Gastrointestinal Disorders: No - Genitourinary/Gynecological Hx Genitourinary Disorders: No - Psychiatric Hx Psychophysiologic Disorder: No Hx Substance Use: No - Past Surgical History Past Surgical History: No Previous - Surgical History Hx Section: Yes (x3) Hx Gastric Bypass Surgery: Yes (2006) - Anesthesia Hx Anesthesia: Yes Hx Anesthesia Reactions: No Hx Malignant Hyperthermia: No - Suicidal Assessment Feels Threatened In Home Enviroment: No Family/Social History - Physician Review Nursing Documentation Reviewed: Yes Family/Social History: Unknown Family HX Smoking Status: Heavy Smoker > 10 Cigarettes Daily Hx Alcohol Use: No Hx Substance Use: No Hx Substance Use Treatment: No Allergies/Home Meds Allergies/Adverse Reactions: Allergies No Known Allergies Allergy (Verified 10/31/17 10:13) Home Medications: Home Meds Medication Instructions Recorded Confirmed Acetaminophen [Non-Aspirin Pain 650 mg PO QID PRN 04/13/17 10/31/17 Relief] Levocetirizine Dihydrochloride 5 mg PO DAILY 04/13/17 10/31/17 [Xyzal] Review of Systems - Physician Review All systems were reviewed & negative as marked: Yes - Review of Systems Constitutional: absent: Fevers Respiratory: absent: SOB, Cough Cardiovascular: absent: Chest Pain Gastrointestinal: Abdominal Pain, Nausea. absent: Diarrhea, Vomiting Genitourinary Female: absent: Dysuria, Hematuria, Vaginal Bleeding, Vaginal Discharge Musculoskeletal: absent: Back Pain, Neck Pain Skin: absent: Rash Neurological: absent: Headache, Dizziness Physical Exam Vital Signs Reviewed: Yes Vital Signs Temp Pulse Resp BP Pulse Ox 10/24/18 13:46 99.1 F 68 18 169/99 H 100 Temperature: Afebrile Blood Pressure: Hypertensive Pulse: Regular Respiratory Rate: Normal Appearance: Positive for: Well-Appearing, Non-Toxic, Comfortable Pain Distress: None Mental Status: Positive for: Alert and Oriented X 3 - Systems Exam Head: Present: Atraumatic, Normocephalic Pupils: Present: PERRL Extroacular Muscles: Present: EOMI Conjunctiva: Present: Normal Respiratory/Chest: Present: Clear to Auscultation, Good Air Exchange. No: Respiratory Distress, Accessory Muscle Use Cardiovascular: Present: Regular Rate and Rhythm, Normal S1, S2. No: Murmurs Abdomen: No: Tenderness, Distention, Peritoneal Signs Back: Present: Normal Inspection Upper Extremity: Present: Normal Inspection. No: Cyanosis, Edema Lower Extremity: Present: Normal Inspection. No: Edema Neurological: Present: GCS=15, CN II-XII Intact, Speech Normal Skin: Present: Warm, Dry, Normal Color. No: Rashes Psychiatric: Present: Alert, Oriented x 3, Normal Insight, Normal Concentration Medical Decision Making ED Course and Treatment: 10/24/18 14:15 Impression: 48 year old female presents to the ED for evaluation of abdominal pain. Plan: -- Labs -- IV fluids -- Toradol -- Urinalysis -- Reassess and disposition Prior Visits: Notes and results from previous visits were reviewed. Progress Notes: - Lab Interpretations Lab Results: 10/24/18 14:00 10/24/18 14:00 Lab Results 10/24/18 14:20: Urine Color Light yellow, Urine Appearance Clear, Urine pH 7.0, Ur Specific [place] 1.010, Urine Protein Negative, Urine Glucose (UA) Negative, Urine Ketones Negative, Urine Blood Trace-lysed H, Urine Nitrate Negative, Urine Bilirubin Negative, Urine Urobilinogen 0.2, Ur Leukocyte Esterase Negative, Urine RBC 2 - 5 H, Urine WBC 0 - 2, Ur Epithelial Cells 1 - 3, Urine Bacteria Mod 10/24/18 14:00: Sodium 138, Potassium 4.3, Chloride 105, Carbon Dioxide 29, Anion Gap 9 L, BUN 9, Creatinine 0.6 L, Est GFR ( Amer) > 60, Est GFR (Non-Af Amer) > 60, Random Glucose 92, Calcium 9.2, Magnesium 2.1, Total Bilirubin 0.4, AST 23, ALT 19, Alkaline Phosphatase 74, Total Protein 7.3, Albumin 4.2, Globulin 3.1, Albumin/Globulin Ratio 1.4, Lipase 39 10/24/18 14:00: WBC 9.2, RBC 4.18, Hgb 10.7 L, Hct 34.7 L, MCV 83.0 D, MCH 25.6, MCHC 30.8 L, RDW 18.6 H, Plt Count 282, MPV 9.3, Gran % 73.0 H, Lymph % (Auto) 22.2, [place] % (Auto) 3.9, Eos % (Auto) 0.8 L, Baso % (Auto) 0.1, Gran # 6.74 H, Lymph # (Auto) 2.1, [place] # (Auto) 0.4, Eos # (Auto) 0.1, Baso # (Auto) 0.01 - Medication Orders Current Medication Orders: Discontinued Medications Sodium Chloride (Sodium Chloride 0.9%) 1,000 mls @ 1,000 mls/hr IV .Q1H STA Stop: 10/24/18 15:14 Last Admin: 10/24/18 14:40 Dose: 1,000 mls/hr eMAR Start Stop Document 10/24/18 14:40 EWO (Rec: 10/24/18 14:40 EWO [id number]) Intravenous Solution Start Date 10/24/18 Start Time 14:40 End Date 10/24/18 End time 15:40 Total Infusion Time 60 Ketorolac Tromethamine (Toradol) 30 mg IVP STAT STA Stop: 10/24/18 14:16 Last Admin: 10/24/18 14:40 Dose: 30 mg MAR Pain Assessment Document 10/24/18 14:40 EWO (Rec: 10/24/18 14:40 [email or web address]) Pain Reassessment Is this a pain reassessment? No Sleep Is patient sleeping during reassessment? No Presence of Pain Presence of Pain Yes Pain Scale Used Protocol: PSCALES Pain Scale Used Numeric Location Pain Location Body Site Abdomen Description Description Intermittent Intensity of Pain at present 4 IVP Administration Document 10/24/18 14:40 EW (Rec: 10/24/18 14:40 [email or web address]) Charges for Administration # of IVP Administrations 1 - Scribe Statement The provider has reviewed the documentation as recorded by the Scribe José Solares. All medical record entries made by the Scribe were at my direction and personally dictated by me. I have reviewed the chart and agree that the record accurately reflects my personal performance of the history, physical exam, medical decision making, and the department course for this patient. I have also personally directed, reviewed, and agree with the discharge instructions and disposition. Disposition/Present on Arrival - Present on Arrival Any Indicators Present on Arrival: No History of DVT/PE: No History of Uncontrolled Diabetes: No Urinary Catheter: No History of Decub. Ulcer: No History Surgical Site Infection Following: None - Disposition Have Diagnosis and Disposition been Completed?: Yes Diagnosis: Abdominal pain Disposition: HOME/ ROUTINE Disposition Time: 15:20 Condition: IMPROVED Discharge Instructions (ExitCare): Acute Abdomen (Belly Pain) Additional Instructions: TRAVIS CASTLE, thank you for letting us take care of you today. The emergency medical care you received today was directed at your acute symptoms. If you were prescribed any medication, please fill it and take as directed. It may take several days for your symptoms to resolve. Return to the Emergency Department if your symptoms worsen, do not improve, or if you have any other problems. Please contact your doctor or call one of the physicians/clinics you have been referred to that are listed on the Patient Visit Information form that is included in your discharge packet. Bring any paperwork you were given at [facility] emergency department with you along with any medications you are taking to your follow up visit. Our treatment cannot replace ongoing medical care by a primary care provider outside of the emergency department. Thank you for allowing the [facility] team to be part of your care today. Followup with your [facility] doctor next week for re-evaluation and further management. Prescriptions: Ibuprofen [Motrin] 600 mg PO Q6 PRN #20 tab PRN Reason: Pain, Moderate (4-7) Referrals: Devin Boone MD [Primary Care Provider] - Follow up with primary Forms: [employer] (Greek)
[2018-10-24 15:49] VITALS: BP 158/86; PULSE 69
== END 2018-10-24 15:51 | disposition home or self-care (01) ==
LOC: ED 13:46
DX: R10.9 Unspecified abdominal pain (principal); M32.9 Systemic lupus erythematosus, unspecified; Z98.84 Bariatric surgery status
CPT/HCPCS: 80053; 81001; 83690; 83735; 84702; 85025; 96361; 96374; 99284; J1885; J7030